=== PATIENT | male | born 1975 | race Two or more races ===

== ENCOUNTER 2020-12-30 16:13 | Emergency (ER) | payer SELFPAY ==
[2020-12-30] MEDS ORDERED: HYDROCODON-ACE1 EAC4 PO (19:19)
[2020-12-30] MEDS ORDERED: AUGMENTIN 875-1 EACH PO (19:21)
== END 2020-12-30 19:35 | disposition home or self-care (01) ==
LOC: ER1 16:13
DX: S66.222A Laceration of extensor muscle, fascia and tendon of left thumb at wrist and hand level, initial encounter (principal); F17.200 Nicotine dependence, unspecified, uncomplicated; W45.8XXA Other foreign body or object entering through skin, initial encounter; Y92.89 Other specified places as the place of occurrence of the external cause; Y99.0 Civilian activity done for income or pay
CPT/HCPCS: 12001; 73130; 90471; 90714; 96372; 99283; J0690